=== PATIENT | female | born 1980 | race Caucasian/White ===

== ENCOUNTER 2023-04-29 08:15 | Inpatient (IN) | payer MEDICAID ==
[~2023-04-29] VITALS: Ht 162.6 cm; Wt 56.8 kg
--- NOTE | 2023-04-29 08:18 | NUR ---
given UA cup, patient came out while toilet was flushing, said she was "unable" to urinate
[2023-04-29 09:00] LABS: EOSINOPHILS # (AUTO) 0.2 X10'3 (0-0.9); HEMOGLOBIN 13.7 g/dl (12.0-16.0); LYMPHOCYTES # (AUTO) 0.5 X10'3 (1.1-4.8); WHITE BLOOD COUNT 10.9 X10'3 (4.5-11.0)
[2023-04-29 09:01] LABS: BASOPHILS % (AUTO) 0.2 % (0-1); EOSINOPHILS % (AUTO) 1.6 % (0-6); HEMATOCRIT 40.2 % (35.0-45.0); LYMPHOCYTES % (AUTO) 4.6 % (21-51); MEAN CORPUSCULAR HEMOGLOBIN 33.8 PG (27.0-31.0); MEAN CORPUSCULAR HGB CONC 34.1 g/dL (33.0-36.5); MEAN PLATELET VOLUME 8.5 FL (7.4-10.4); MONOCYTES # (AUTO) 0.8 X10'3 (0-0.9); MONOCYTES % (AUTO) 7.5 % (2-12); NEUTROPHILS # (AUTO) 9.4 X10'3 (1.8-7.7); NEUTROPHILS % (AUTO) 86.1 % (42-75); PLATELET COUNT 355 X10'3 (140-440); RED BLOOD COUNT 4.06 X10'6 (4.20-5.60); RED CELL DISTRIBUTION WIDTH 14.4 % (11.5-14.5)
[2023-04-29 09:51] LABS: ALANINE AMINOTRANSFERASE 27 U/L (12-78); ALBUMIN 3.6 G/DL (3.4-5.0); ALKALINE PHOSPHATASE 78 IU/L (46-116); ANION GAP 17 (8-16); ASPARTATE AMINO TRANSFERASE 36 U/L (10-37); BILIRUBIN,TOTAL 0.2 MG/DL (0.1-1.0); BLOOD UREA NITROGEN 5 MG/DL (7-18); BUN/CREATININE RATIO 8.9 (10.0-20.0); CALCIUM 8.8 MG/DL (8.5-10.1); CHLORIDE 104 MMOL/L (99-107); CREATININE 0.56 MG/DL (0.40-0.90); GLUCOSE 95 MG/DL (70-104); SODIUM 143 MMOL/L (135-145); TOTAL CARBON DIOXIDE 22.5 MMOL/L (24-32); TOTAL PROTEIN 7.3 G/DL (6.4-8.2); eGFR > 90 ML/MIN
[2023-04-29] MEDS ORDERED: ONDA4TAB12 PO (14:33)
[2023-04-29] MEDS ORDERED: POTASSIUM BICARB 20meq eff tab 20 MEQ TABLET.EFF PO STA (14:34)
[2023-04-29] MEDS ORDERED: ondansetron 4mg rapidly disintigrating tab PO ONE (14:35)
[2023-04-29] MEDS ORDERED: normal saline 1000ml 1,000 ML IV ONE (14:35)
[2023-04-29] MEDS ORDERED: famotidine 20mg tablet PO ONE (14:35)
[2023-04-29 14:57] LABS: MAGNESIUM 0.9 MG/DL (1.5-2.4)
--- NOTE | 2023-04-29 15:01 | NUR ---
Patient unable to provide urine sample. IV fluids started.
[2023-04-29] MEDS ORDERED: potassium Cl 40MEQ/1/2NS 520ml 520 ML IV ONE (15:15)
--- NOTE | 2023-04-29 15:20 | NUR ---
Charge nurse notified of pending admission and IV medications ordered.
[2023-04-29] MEDS ORDERED: morphine 4 MG/ML inj SYRINge IV ONE (15:25)
[2023-04-29 15:40] LABS: ETHANOL < 10 MG/DL (<10)
[2023-04-29 16:05] LABS: URINE AMPHETAMINE SCREEN NEGATIVE (Neg); URINE BARBITUATE SCREEN NEGATIVE (Neg); URINE BENZODIAZEPINES SCREEN NEGATIVE (Neg); URINE CANNABINOID SCREEN POSITIVE (Neg); URINE COCAINE SCREEN NEGATIVE (Neg); URINE METHADONE SCREEN NEGATIVE (Neg); URINE OPIATE SCREEN NEGATIVE (Neg); URINE PHENCYCLIDINE SCREEN NEGATIVE (Neg)
--- NOTE | 2023-04-29 16:05 | NUR ---
Dr. So, Hospitalist at bedside.
[2023-04-29] MEDS ORDERED: potassium Cl 40MEQ/1/2NS 520ml 520 ML IV PRN (16:30)
[2023-04-29] MEDS ORDERED: potassium Cl 20 mEq SR tablet PO PRN ×2 (16:30)
[2023-04-29] MEDS ORDERED: magnesium 2GM in 50ml NS 50 ML IV PRN (16:30)
[2023-04-29] MEDS ORDERED: magnesium 4gm in 100ml NS 100 ML IV PRN (16:30)
[2023-04-29] MEDS ORDERED: morphine 2 MG/ML inj. syringe IV PRN (16:30)
[2023-04-29] MEDS ORDERED: HYDROcodone/acetaminophen 5mg/325mg tablet PO PRN (16:30)
[2023-04-29] MEDS ORDERED: LORazepam 2 mg/ml vial IV PRN (16:30)
[2023-04-29] MEDS ORDERED: acetaminophen 325mg tablet PO PRN ×2 (16:30)
[2023-04-29] MEDS ORDERED: magnesium Cl slow-release 64mg tablet PO PRN (16:30)
[2023-04-29 16:52] LABS: LIPASE < 50 U/L (73-393)
--- NOTE | 2023-04-29 16:52 | NUR ---
Patient moved from ER fast track C to ER rm 11. Report given to LIBERTY Eason.
[2023-04-29 16:56] LABS: HCG SERUM QL NEGATIVE
[2023-04-29] MEDS: magnesium 2GM in 50ml NS 50 ML IV SCH ×2 (17:03→18:41)
[2023-04-29] MEDS: potassium Cl 20mEq in NS 1,000 ML IV SCH (17:03)
[2023-04-29] MEDS ORDERED: BUSP10TA3 PO (17:19)
[2023-04-29] MEDS ORDERED: HYDR-3686 PO (17:19)
[2023-04-29] MEDS ORDERED: GABA300C PO (17:19)
[2023-04-29] MEDS ORDERED: TRAZ-251 PO (17:19)
[2023-04-29] MEDS ORDERED: VENL75TA90 PO (17:19)
[2023-04-29] MEDS ORDERED: ESCI-8 PO (17:19)
[2023-04-29] MEDS: HYDROcodone/acetaminophen 10/325mg tab PO PRN ×2 (18:41→23:25)
[2023-04-29] MEDS: ondansetron/PF 4mg/2ml inj IV PRN ×2 (18:41→23:36)
[2023-04-29] MEDS: pantoprazole 40mg Tablet.DR PO SCH (20:59)
[2023-04-29] MEDS ORDERED: temazepam 15mg capsule PO PRN (21:00)
[2023-04-30] MEDS: LORazepam 1 MG tablet PO PRN ×5 (00:54→21:46)
[2023-04-30 01:43] LABS: CLARITY,URINE CLOUDY (Clear); COLOR,URINE YELLOW (Yellow); GLUCOSE, URINE NEGATIVE (Neg); KETONES,URINE NEGATIVE (Neg); LEUKOCYTE ESTERASE ,URINE NEGATIVE (Neg); NITRITES, URINE POSITIVE (Neg); OCCULT BLOOD,URINE MODERATE (Neg); PH,URINE 5.5 (4.8-8.0); PROTEIN,URINE TRACE mg/dl (Neg); UROBILINOGEN,URINE 0.2 E.U/dL (0.2-1.0)
[2023-04-30 01:44] LABS: UA COLLECTION TYPE VOIDED
[2023-04-30 01:52] LABS: BACTERIA,URINE 4+ /HPF (Neg)
[2023-04-30 01:53] LABS: RBC,URINE 0-2 /HPF (0-2)
[2023-04-30 01:55] LABS: MUCUS STRANDS FEW /LPF (Neg)
[2023-04-30 01:56] LABS: SQUAMOUS EPITHELIAL CELL,UR MANY /LPF (FEW)
[2023-04-30 03:49] LABS: HEMOGLOBIN 11.2 g/dl (12.0-16.0); MONOCYTES % (AUTO) 15.4 % (2-12); WHITE BLOOD COUNT 6.7 X10'3 (4.5-11.0)
[2023-04-30 03:51] LABS: BASOPHILS # (AUTO) 0.1 X10'3 (0-0.2); BASOPHILS % (AUTO) 0.8 % (0-1); EOSINOPHILS % (AUTO) 0.7 % (0-6); HEMATOCRIT 32.8 % (35.0-45.0); LYMPHOCYTES # (AUTO) 0.9 X10'3 (1.1-4.8); LYMPHOCYTES % (AUTO) 12.9 % (21-51); MEAN CORPUSCULAR HEMOGLOBIN 33.6 PG (27.0-31.0); MEAN CORPUSCULAR HGB CONC 34.2 g/dL (33.0-36.5); MEAN CORPUSCULAR VOLUME 98.2 FL (78-98); MEAN PLATELET VOLUME 9.1 FL (7.4-10.4); NEUTROPHILS # (AUTO) 4.7 X10'3 (1.8-7.7); NEUTROPHILS % (AUTO) 70.2 % (42-75); PLATELET COUNT 272 X10'3 (140-440); RED BLOOD COUNT 3.34 X10'6 (4.20-5.60); RED CELL DISTRIBUTION WIDTH 14.2 % (11.5-14.5)
[2023-04-30 03:56] LABS: ALANINE AMINOTRANSFERASE 29 U/L (12-78); ALBUMIN 2.6 G/DL (3.4-5.0); ALBUMIN/GLOBULIN RATIO 0.9 (1.1-1.5); ALKALINE PHOSPHATASE 66 IU/L (46-116); ANION GAP 5 (8-16); ASPARTATE AMINO TRANSFERASE 41 U/L (10-37); BILIRUBIN,TOTAL 0.2 MG/DL (0.1-1.0); BLOOD UREA NITROGEN 6 MG/DL (7-18); BUN/CREATININE RATIO 9.4 (10.0-20.0); CALCIUM 7.5 MG/DL (8.5-10.1); CHLORIDE 104 MMOL/L (99-107); CREATININE 0.64 MG/DL (0.40-0.90); GLUCOSE 81 MG/DL (70-104); MAGNESIUM 2.2 MG/DL (1.5-2.4); PHOSPHORUS 2.2 MG/DL (2.3-4.5); POTASSIUM 3.5 MMOL/L (3.5-5.1); SODIUM 135 MMOL/L (135-145); TOTAL CARBON DIOXIDE 25.9 MMOL/L (24-32); TOTAL PROTEIN 5.5 G/DL (6.4-8.2); eGFR > 90 ML/MIN
[2023-04-30] MEDS: potassium Cl 20mEq in NS 1,000 ML IV SCH ×2 (04:14→13:35)
[2023-04-30 05:48] LABS: OCCULT BLOOD STOOL POSITIVE (Neg)
[2023-04-30] MEDS: nicotine 14mg patch - 24hr TD SCH (08:00)
[2023-04-30] MEDS: ondansetron/PF 4mg/2ml inj IV PRN (08:27)
[2023-04-30] MEDS: HYDROcodone/acetaminophen 10/325mg tab PO PRN ×2 (08:27→13:35)
[2023-04-30] MEDS: multivitamins, therapeutics tablet PO SCH (08:28)
[2023-04-30] MEDS: pantoprazole 40mg Tablet.DR PO SCH (08:28)
[2023-04-30] MEDS ORDERED: iohexol 300mg/ml 100ml inj. ONE (09:48)
[2023-04-30 10:22] LABS: % IRON SATURATION 25 % (11-46); IRON 60 UG/DL (49-151); TOTAL IRON BINDING CAPACITY 243 UG/DL (259-388)
[2023-04-30 15:05] LABS: BASOPHILS # (AUTO) 0.1 X10'3 (0-0.2); BASOPHILS % (AUTO) 1.1 % (0-1); EOSINOPHILS % (AUTO) 0.9 % (0-6); HEMATOCRIT 35.3 % (35.0-45.0); HEMOGLOBIN 12.1 g/dl (12.0-16.0); LYMPHOCYTES # (AUTO) 1.2 X10'3 (1.1-4.8); LYMPHOCYTES % (AUTO) 23.3 % (21-51); MEAN CORPUSCULAR HEMOGLOBIN 33.9 PG (27.0-31.0); MEAN CORPUSCULAR HGB CONC 34.3 g/dL (33.0-36.5); MEAN CORPUSCULAR VOLUME 98.8 FL (78-98); MEAN PLATELET VOLUME 8.7 FL (7.4-10.4); MONOCYTES # (AUTO) 0.8 X10'3 (0-0.9); MONOCYTES % (AUTO) 14.7 % (2-12); NEUTROPHILS # (AUTO) 3.2 X10'3 (1.8-7.7); PLATELET COUNT 237 X10'3 (140-440); RED BLOOD COUNT 3.57 X10'6 (4.20-5.60); WHITE BLOOD COUNT 5.3 X10'3 (4.5-11.0)
--- NOTE | 2023-04-30 15:14 | NUR ---
RELIEVING RN FOR BREAK, PT IS RESTING QUIETLY ON HOSPITAL BED, AT BEDSIDE, WAITING FOR BED ASSIGNMENT
--- NOTE | 2023-04-30 16:31 | NUR ---
RN ATTEMPTED TO CALL REPORT AND WAS PLACED ON HOLD. RN WILL ATTEMPT TO CALL BACK.
--- NOTE | 2023-04-30 16:45 | NUR ---
Patient in room ORTHO 4023. I have received report from Summer and had the opportunity to ask questions and assume patient care.
[2023-04-30] MEDS ORDERED: CefTRIAXone/D5W-Rocephin 1gm 50 ML IV ONE (17:45)
[2023-04-30] MEDS: morphine 2 MG/ML inj. syringe IV PRN ×2 (17:46→21:46)
--- NOTE | 2023-04-30 18:45 | NUR ---
Patient in room ORTHO 4006. I have received report from NELL Childers and had the opportunity to ask questions and assume patient care.
--- NOTE | 2023-04-30 18:50 | NUR ---
Problems reprioritized. Patient report given, questions answered & plan of care reviewed with Bridget Castaneda RN.
[2023-04-30 22:00] VITALS: BP 163/95; PULSE 88; RESP 22; TEMP 101.2; O2SAT 92
[2023-04-30 22:53] VITALS: BP 169/78; PULSE 68; RESP 18; TEMP 101.6; O2SAT 91
[2023-04-30] MEDS ORDERED: vancomycin/NS 1 GM ADD-VANTAGE 250 ML IV ONE (23:00)
[2023-04-30] MEDS ORDERED: ringers solution, lacted 1,000 ML IV ONE (23:00)
[2023-05-01] MEDS: acetaminophen 1,000mg/100ml IV 100 ML IV SCH ×3 (00:07→09:19)
[2023-05-01] MEDS ORDERED: dexamethasone 4mg/ml inj IM SCH (00:50)
[2023-05-01] MEDS: dexamethasone 4mg/ml inj IV SCH ×2 (01:27→08:26)
[2023-05-01] MEDS: potassium Cl 20mEq in NS 1,000 ML IV SCH (01:28)
[2023-05-01 02:00] VITALS: BP 133/83; PULSE 85; RESP 19; TEMP 98.9; O2SAT 96
[2023-05-01] MEDS: morphine 2 MG/ML inj. syringe IV PRN ×2 (02:12→08:28)
[2023-05-01 02:25] VITALS: TEMP 100.4
[2023-05-01] MEDS: pantoprazole 40MG/NS 100ML BAG 100 ML IV SCH ×2 (03:21→08:47)
[2023-05-01 06:00] VITALS: BP 132/77; PULSE 63; RESP 16; TEMP 98.4; O2SAT 98
--- NOTE | 2023-05-01 06:39 | NUR ---
Patient in room ORTHO 4006. I have received report from Ryann CAMEJO and had the opportunity to ask questions and assume patient care.
[2023-05-01 08:00] VITALS: RESP 18
[2023-05-01] MEDS: nicotine 14mg patch - 24hr TD SCH (08:00)
[2023-05-01] MEDS: multivitamins, therapeutics tablet PO SCH (08:25)
[2023-05-01] MEDS: LORazepam 1 MG tablet PO PRN (08:25)
[2023-05-01 09:02] LABS: BASOPHILS % (AUTO) 0.2 % (0-1); EOSINOPHILS % (AUTO) 0.1 % (0-6); HEMATOCRIT 40.6 % (35.0-45.0); LYMPHOCYTES # (AUTO) 0.7 X10'3 (1.1-4.8); LYMPHOCYTES % (AUTO) 8.4 % (21-51); MEAN CORPUSCULAR HEMOGLOBIN 34.1 PG (27.0-31.0); MEAN CORPUSCULAR HGB CONC 34.4 g/dL (33.0-36.5); MEAN CORPUSCULAR VOLUME 99.2 FL (78-98); MEAN PLATELET VOLUME 9.2 FL (7.4-10.4); MONOCYTES # (AUTO) 0.5 X10'3 (0-0.9); MONOCYTES % (AUTO) 5.9 % (2-12); NEUTROPHILS # (AUTO) 7.2 X10'3 (1.8-7.7); NEUTROPHILS % (AUTO) 85.4 % (42-75); PLATELET COUNT 208 X10'3 (140-440); RED BLOOD COUNT 4.09 X10'6 (4.20-5.60); RED CELL DISTRIBUTION WIDTH 14.2 % (11.5-14.5); WHITE BLOOD COUNT 8.5 X10'3 (4.5-11.0)
[2023-05-01 09:21] LABS: APTT 33 SECONDS (22-32); D-DIMER 1.48 MG/L FEU (0-0.50)
[2023-05-01 09:25] LABS: ALANINE AMINOTRANSFERASE 23 U/L (12-78); ALBUMIN 2.8 G/DL (3.4-5.0); ALBUMIN/GLOBULIN RATIO 0.8 (1.1-1.5); ALKALINE PHOSPHATASE 72 IU/L (46-116); ANION GAP 8 (8-16); ASPARTATE AMINO TRANSFERASE 33 U/L (10-37); BILIRUBIN,TOTAL 0.2 MG/DL (0.1-1.0); BLOOD UREA NITROGEN 4 MG/DL (7-18); BUN/CREATININE RATIO 9.1 (10.0-20.0); CALCIUM 8.3 MG/DL (8.5-10.1); CHLORIDE 102 MMOL/L (99-107); CREATINE KINASE 85 U/L (26-192); CREATININE 0.44 MG/DL (0.40-0.90); GLUCOSE 112 MG/DL (70-104); MAGNESIUM 1.5 MG/DL (1.5-2.4); PHOSPHORUS 3.2 MG/DL (2.3-4.5); POTASSIUM 3.7 MMOL/L (3.5-5.1); SODIUM 133 MMOL/L (135-145); TOTAL CARBON DIOXIDE 23.2 MMOL/L (24-32); TOTAL PROTEIN 6.1 G/DL (6.4-8.2); eGFR > 90 ML/MIN
[2023-05-01] MEDS: HYDROcodone/acetaminophen 10/325mg tab PO PRN (09:55)
[2023-05-01 10:00] VITALS: BP 153/88; PULSE 63; RESP 16; TEMP 98.8; O2SAT 97
--- NOTE | 2023-05-01 10:15 | NUR ---
PAGER ID: [phone] MESSAGE: MAGDALENO MARMOLEJO [id number] RE: [id number] EGD CANCELED BY GI, SHOULD BE DONE POST COVID OUT PATIENT. ARCHANA PANDEY WOULD YOU LIKE TO ADD A DIET FOR THIS PATIENT. Addendum: 05/01/23 at 1016 by Jorge Young RN RECEIVED ORDERS AT THIS TIME FROM
[2023-05-01 11:25] VITALS: RESP 16
--- NOTE | 2023-05-01 13:25 | NUR ---
PAGER ID: [phone] MESSAGE: Alvarado Augustin [id number] patient did not want to wait for PT eval and treat and signed AMA form and are on the way out after she is dressed
--- NOTE | 2023-05-01 13:33 | NUR ---
Patient left AMA all IV out at this time, Tele box taken off patient. Patient discharge came through at the time of AMA and patient did not want to wait for PT to sign off or discharge. Patient was insistent that she needed to go down and smoke straight away. Patient stated she did not want to wait for discharge. Patient missed all discharge instruction and her follow with her primary, she never waited for instruction on self isolation or any GI follow up that was recommended by MD. Patient also never got her discharge medication or instruction. Patient made it clear she did not want to wait to go out and smoke. Patient signed AMA after removing both of her IV's and removing tele box as well. MD was notified that patient did not want to wait for discharge because she wanted to go out and smoke. Patient also told MD that she wanted to go out and smoke at this time. Patient was not able to be dissuaded at this time.
[2023-05-02] MEDS ORDERED: acetaminophen 325mg tablet PO PRN ×2 (14:15)
[2023-05-04] MEDS ORDERED: folic acid 1mg tablet PO SCH (08:00)
[2023-05-04] MEDS ORDERED: thiamine 100mg tablet PO SCH (08:00)
== END 2023-05-01 13:30 | disposition left against medical advice (07) | DRG 249 ==
LOC: ER 08:16 → ED HOLD 16:37 → ORTHO 4S 04-30 16:48
PROVIDERS: ADMIT Internal Medicine; ATTEND Internal Medicine
DX: K52.9 Noninfective gastroenteritis and colitis, unspecified (principal); U07.1 COVID-19; Z53.29 Procedure and treatment not carried out because of patient's decision for other reasons; E83.42 Hypomagnesemia; F17.210 Nicotine dependence, cigarettes, uncomplicated; F12.90 Cannabis use, unspecified, uncomplicated; N93.9 Abnormal uterine and vaginal bleeding, unspecified; K21.9 Gastro-esophageal reflux disease without esophagitis; N39.0 Urinary tract infection, site not specified; F10.10 Alcohol abuse, uncomplicated; F41.9 Anxiety disorder, unspecified; E87.6 Hypokalemia; R07.89 Other chest pain; K29.20 Alcoholic gastritis without bleeding; F32.A Depression, unspecified; Z59.00 Homelessness unspecified; Z71.6 Tobacco abuse counseling; Z71.51 Drug abuse counseling and surveillance of drug abuser; Z79.899 Other long term (current) drug therapy
CPT/HCPCS: 36415; 71045; 74177; 80053; 80305; 80320; 81001; 82272; 82550; 83540; 83550; 83605; 83690; 83735; 83880; 84100; 84443; 84484; 84703; 85025; 85379; 85384; 85610; 85730; 86140; 87040; 87081; 87811; 93005; 99285; A4615; A6258; C9113; G0378; J0131; J0696; J1100; J2060; J2270; J2405; J3370; J3475; J3480; J3490; J7030; J7120; Q9967

== ENCOUNTER 2023-05-02 19:47 | Emergency (ER) | payer MEDICAID ==
[~2023-05-02 19:47] MED LIST: BUSP10TA3 PO; ESCI-8 PO; GABA300C PO; HYDR-3686 PO; TRAZ-251 PO; VENL75TA90 PO
== END 2023-05-02 21:37 | disposition left against medical advice (07) ==
LOC: ER 19:47
DX: Z00.8 Encounter for other general examination (principal); Z53.21 Procedure and treatment not carried out due to patient leaving prior to being seen by health care provider

== ENCOUNTER 2024-01-12 18:15 | Inpatient (IN) | payer MEDICAID ==
[~2024-01-12] VITALS: Ht 162.6 cm; Wt 59.1 kg
[2024-01-12] MEDS ORDERED: loperamide 2mg capsule PO PRN (20:45)
[2024-01-12] MEDS ORDERED: magnesium hydroxide 30ml (MOM) UD suspension PO PRN (20:45)
[2024-01-12] MEDS: busPIRone 5mg tablet PO SCH (21:00)
[2024-01-12 21:12] VITALS: RESP 16; O2SAT 100
[2024-01-12] MEDS: pneumococcal 23-VAL P-sac vacc 25 mcg/0.5ml vial IMVAC ONE (22:12)
[2024-01-12] MEDS: gabapentin 300mg capsule PO SCH (22:18)
[2024-01-12] MEDS: hydrOXYzine 25 MG tablet PO PRN (22:19)
[2024-01-12] MEDS: ondansetron 4mg rapidly disintigrating tab PO PRN (22:19)
[2024-01-12] MEDS: LORazepam 1 MG tablet PO PRN (22:19)
[2024-01-13 07:11] VITALS: RESP 16; O2SAT 100
[2024-01-13 08:00] VITALS: BP 150/94; PULSE 74; RESP 14; TEMP 97.8; O2SAT 98
[2024-01-13] MEDS: ESCITALOPRAM 10 mg tablet 10 MG TABLET PO SCH (08:18)
[2024-01-13] MEDS: venlafaxine 25mg tablet PO SCH (08:19)
[2024-01-13] MEDS: nicotine 21mg patch - 24 hr TD SCH (08:26)
[2024-01-13 09:50] LABS: CHOL/HDL RATIO 2.2 (0.00-4.99); CHOLESTEROL 208 MG/DL (0-200); HDL CHOLESTEROL 93 MG/DL (35-60); HEMOGLOBIN A1C 4.6 % (4.5-6.2); LDL CHOLESTEROL 103 MG/DL (50-100); TRIGLYCERIDES 173 MG/DL (20-135)
[2024-01-13 11:56] LABS: ALANINE AMINOTRANSFERASE 15 U/L (12-78); ALBUMIN 3.3 G/DL (3.4-5.0); ALBUMIN/GLOBULIN RATIO 0.8 (1.1-1.5); ALKALINE PHOSPHATASE 79 IU/L (46-116); ANION GAP 17 (8-16); ASPARTATE AMINO TRANSFERASE 25 U/L (10-37); BILIRUBIN,TOTAL 1.4 MG/DL (0.1-1.0); BLOOD UREA NITROGEN 16 MG/DL (7-18); BUN/CREATININE RATIO 31.4 (10.0-20.0); CALCIUM 9.7 MG/DL (8.5-10.1); CHLORIDE 96 MMOL/L (99-107); CREATININE 0.51 MG/DL (0.40-0.90); GLUCOSE 156 MG/DL (70-104); LIPASE 32 U/L (16-77); MAGNESIUM 1.5 MG/DL (1.5-2.4); PHOSPHORUS 3.5 MG/DL (2.3-4.5); POTASSIUM 3.3 MMOL/L (3.5-5.1); SODIUM 137 MMOL/L (135-145); TOTAL CARBON DIOXIDE 24.5 MMOL/L (24-32); TOTAL PROTEIN 7.2 G/DL (6.4-8.2); eCRCL 120 ML/MIN; eGFR > 90 ML/MIN
[2024-01-13 12:00] LABS: BASOPHILS # (AUTO) 0.1 X10'3 (0-0.2); BASOPHILS % (AUTO) 1.4 % (0-1); EOSINOPHILS # (AUTO) 0.3 X10'3 (0-0.9); EOSINOPHILS % (AUTO) 3.1 % (0-6); HEMATOCRIT 38.9 % (35.0-45.0); HEMOGLOBIN 13.4 g/dl (12.0-16.0); LYMPHOCYTES # (AUTO) 1.3 X10'3 (1.1-4.8); LYMPHOCYTES % (AUTO) 15.6 % (21-51); MEAN CORPUSCULAR HEMOGLOBIN 33.3 PG (27.0-31.0); MEAN CORPUSCULAR HGB CONC 34.4 g/dL (33.0-36.5); MEAN CORPUSCULAR VOLUME 96.9 FL (78-98); MEAN PLATELET VOLUME 9.4 FL (7.4-10.4); MONOCYTES # (AUTO) 0.9 X10'3 (0-0.9); MONOCYTES % (AUTO) 10.7 % (2-12); NEUTROPHILS # (AUTO) 5.6 X10'3 (1.8-7.7); NEUTROPHILS % (AUTO) 69.2 % (42-75); PLATELET COUNT 258 X10'3 (140-440); RED BLOOD COUNT 4.01 X10'6 (4.20-5.60); RED CELL DISTRIBUTION WIDTH 15.2 % (11.5-14.5); WHITE BLOOD COUNT 8.1 X10'3 (4.5-11.0)
[2024-01-13] MEDS ORDERED: pneumococcal 23-VAL P-sac vacc 25 mcg/0.5ml vial IMVAC ONE (12:00)
[2024-01-13] MEDS: pneumococcal 23-VAL P-sac vacc 25 mcg/0.5ml vial IMVAC ONE (13:37)
[2024-01-13 19:19] VITALS: BP 142/87; PULSE 91; RESP 14; TEMP 98; O2SAT 97
[2024-01-13] MEDS: traZODone 50mg tablet PO SCH (20:04)
[2024-01-14 07:00] VITALS: RESP 14; O2SAT 99
[2024-01-14 08:00] VITALS: BP 135/88; PULSE 73; RESP 14; TEMP 97.7; O2SAT 99
[2024-01-14] MEDS: pantoprazole 40mg Tablet.DR PO SCH (08:13)
[2024-01-14] MEDS: acetaminophen 325mg tablet PO PRN (10:03)
[2024-01-14 18:50] VITALS: RESP 16; O2SAT 99
[2024-01-14 19:44] VITALS: BP 148/92; PULSE 82; RESP 16; TEMP 89.9; O2SAT 99
[2024-01-15 07:00] VITALS: RESP 14; O2SAT 66
[2024-01-15 08:00] VITALS: BP 134/79; PULSE 66; RESP 14; TEMP 98.6; O2SAT 99
[2024-01-15] MEDS: venlafaxine XR 75mg capsule (Q24H) PO SCH (08:02)
[2024-01-15] MEDS ORDERED: potassium Cl 20 mEq SR tablet PO PRN ×2 (13:10)
[2024-01-15] MEDS ORDERED: magnesium Cl slow-release 64mg tablet PO PRN (13:10)
[2024-01-15] MEDS: NICOTINE POLACRILEX 2 MG LOZENGE BC PRN (16:28)
[2024-01-15 19:00] VITALS: BP 155/95; PULSE 79; RESP 18; TEMP 97.6; O2SAT 100
[2024-01-15] MEDS: busPIRone 15mg tablet PO SCH (20:34)
[2024-01-15] MEDS: traZODone 50mg tablet PO ONE (22:15)
[2024-01-16 07:00] VITALS: RESP 16; O2SAT 97
[2024-01-16 08:00] VITALS: BP 126/81; PULSE 76; RESP 16; TEMP 97; O2SAT 97
[2024-01-16] MEDS: hydrOXYzine 25 MG tablet PO PRN (19:05)
[2024-01-16] MEDS: HALLS - SOOTHE MENTHOL 1.8 MG cough drop LOZENGE MM PRN (19:36)
[2024-01-16 20:00] VITALS: BP 148/85; PULSE 77; RESP 18; TEMP 97.9; O2SAT 99
[2024-01-17 07:00] VITALS: BP 124/81; PULSE 76; RESP 16; TEMP 98; O2SAT 99
[2024-01-17] MEDS: naltrexone 50mg tablet PO SCH (07:07)
[2024-01-17] MEDS: folic acid 1mg tablet PO ONE (11:23)
[2024-01-17] MEDS ORDERED: HALLS - SOOTHE MENTHOL 1.8 MG cough drop LOZENGE MM PRN (17:00)
[2024-01-17] MEDS: thiamine 100mg tablet PO SCH (20:21)
[2024-01-17] MEDS: propranolol 10mg tablet PO SCH (20:21)
[2024-01-17 20:34] VITALS: BP 170/89; PULSE 69; RESP 18; TEMP 96.6; O2SAT 100
[2024-01-18 07:00] VITALS: BP 127/75; PULSE 73; RESP 16; TEMP 97.5; O2SAT 96
[2024-01-18] MEDS: multivitamins, therapeutics tablet PO SCH (07:19)
[2024-01-18] MEDS: LORazepam 0.5 MG tablet PO PRN (15:42)
[2024-01-18 20:00] VITALS: BP 132/87; PULSE 98; RESP 17; TEMP 97.5; O2SAT 99
[2024-01-19 07:00] VITALS: RESP 12; O2SAT 99
[2024-01-19 08:00] VITALS: BP 122/79; PULSE 61; RESP 12; TEMP 97.3; O2SAT 99
[2024-01-19 13:17] VITALS: BP 136/89; PULSE 67
[2024-01-19 19:00] VITALS: RESP 14; O2SAT 99
[2024-01-19 21:00] VITALS: BP 129/84; PULSE 70; RESP 14; TEMP 97.4; O2SAT 99
[2024-01-19] MEDS: propranolol 10mg tablet PO SCH (21:19)
[2024-01-20 07:00] VITALS: RESP 12; O2SAT 99
[2024-01-20 08:00] VITALS: BP 128/89; PULSE 97; RESP 16; TEMP 97.2; O2SAT 96
[2024-01-20] MEDS: LORazepam 0.5 MG tablet PO PRN (09:28)
[2024-01-20] MEDS ORDERED: MULT-25 PO (09:59)
[2024-01-20] MEDS ORDERED: BUS15T PO (09:59)
[2024-01-20] MEDS ORDERED: NICO-907 BC (09:59)
[2024-01-20] MEDS ORDERED: NICO-687 TD (09:59)
[2024-01-20] MEDS ORDERED: HYDR-3686 PO (09:59)
[2024-01-20] MEDS ORDERED: GABA300C PO (09:59)
[2024-01-20] MEDS ORDERED: NALT50TA PO (09:59)
[2024-01-20] MEDS ORDERED: PROP10TA10 PO (09:59)
[2024-01-20] MEDS ORDERED: VENL150C58 PO (09:59)
[2024-01-20] MEDS ORDERED: thiamine tablet PO (09:59)
[2024-01-20] MEDS ORDERED: TRAZ-251 PO (09:59)
[2024-01-20] MEDS ORDERED: PANT40TA54 PO (09:59)
[2024-01-20 19:00] VITALS: RESP 16; O2SAT 97
[2024-01-20 20:00] VITALS: BP 132/75; PULSE 68; RESP 16; TEMP 97.6; O2SAT 97
[2024-01-21 07:00] VITALS: RESP 12; O2SAT 99
[2024-01-21 08:00] VITALS: BP 109/73; PULSE 69; RESP 14; TEMP 97.7; O2SAT 100
[2024-01-21 19:00] VITALS: RESP 14; O2SAT 99
[2024-01-21 20:00] VITALS: BP 106/74; PULSE 61; RESP 14; TEMP 97.1; O2SAT 99
[2024-01-22 07:25] VITALS: RESP 16; O2SAT 96
[2024-01-22 08:00] VITALS: BP 112/60; PULSE 64; RESP 16; TEMP 96.3; O2SAT 100
[2024-01-22 19:00] VITALS: BP 127/80; PULSE 66; RESP 16; TEMP 97.1; O2SAT 100
[2024-01-22 20:00] VITALS: BP 127/80; PULSE 66; RESP 16; TEMP 97.1; O2SAT 100
[2024-01-23 07:14] VITALS: RESP 16; O2SAT 100
[2024-01-23 08:14] VITALS: BP 117/79; PULSE 57; RESP 16; TEMP 97.1; O2SAT 100
== END 2024-01-23 11:04 | DRG 751 ==
LOC: EEVIPCON → ADULT MH 20:36 → EEVIPCON 20:36 → ADULT MH 01-14 11:46
PROVIDERS: ADMIT Psychiatry & Neurology Psychiatry; ATTEND Psychiatry & Neurology Psychiatry
PROC: GZHZZZZ Group Psychotherapy (ICD-10-PCS; principal; 2024-01-19)
PROC: GZ51ZZZ Individual Psychotherapy, Behavioral (ICD-10-PCS; 2024-01-20)
DX: F33.2 Major depressive disorder, recurrent severe without psychotic features (principal); R45.851 Suicidal ideations; E87.6 Hypokalemia; F10.239 Alcohol dependence with withdrawal, unspecified; F43.12 Post-traumatic stress disorder, chronic; K21.9 Gastro-esophageal reflux disease without esophagitis; Z20.822 Contact with and (suspected) exposure to COVID-19; F41.1 Generalized anxiety disorder; G47.00 Insomnia, unspecified; F17.210 Nicotine dependence, cigarettes, uncomplicated; G89.4 Chronic pain syndrome; Z59.00 Homelessness unspecified; Z79.899 Other long term (current) drug therapy; R19.7 Diarrhea, unspecified; F40.10 Social phobia, unspecified
CPT/HCPCS: 36415; 71045; 80053; 80061; 83036; 83690; 83735; 84100; 85025; 87081; 87811; 90732; Q0177

== ENCOUNTER 2024-11-17 15:27 | Inpatient (IN) | payer MEDICAID ==
[~2024-11-17] VITALS: Ht 165.1 cm; Wt 56.7 kg
[~2024-11-17 15:27] MED LIST changes: +BUS15T PO; -BUSP10TA3 PO; -ESCI-8 PO; +MULT-25 PO; +NALT50TA5 PO; +NICO-687 TD; +NICO-907 BC; +PANT40TA54 PO; +PROP10TA10 PO; +VENL150C58 PO; -VENL75TA90 PO; +thiamine tablet PO
[2024-11-17 17:06] VITALS: BP 138/98; PULSE 98; RESP 17; TEMP 97.9; O2SAT 94
[2024-11-17] MEDS ORDERED: chlorproMAZINE 25mg tablet PO PRN (17:35)
[2024-11-17] MEDS ORDERED: loperamide 2mg capsule PO PRN (17:35)
[2024-11-17] MEDS ORDERED: acetaminophen 325mg tablet PO PRN (17:35)
[2024-11-17] MEDS ORDERED: diphenhydrAMINE 25mg capsule PO PRN (17:35)
[2024-11-17] MEDS ORDERED: ondansetron 4mg rapidly disintigrating tab PO PRN (17:40)
[2024-11-17] MEDS: hydrOXYzine 25 MG tablet PO PRN (19:13)
[2024-11-17] MEDS: nicotine 14mg patch - 24hr TD SCH (19:40)
[2024-11-17 20:35] VITALS: BP 106/67; PULSE 101; RESP 20; TEMP 98.3; O2SAT 98
[2024-11-17] MEDS: traZODone 50mg tablet PO PRN (20:55)
[2024-11-17] MEDS: LORazepam 1 MG tablet PO ONE (20:55)
[2024-11-17] MEDS: NICOTINE POLACRILEX 2 MG LOZENGE BC PRN (20:55)
[2024-11-17] MEDS: LIDOcaine 5% patch TP SCH (20:56)
[2024-11-18] MEDS ORDERED: GABA-530 PO (02:56)
[2024-11-18] MEDS ORDERED: VENL150C58 PO (02:56)
[2024-11-18] MEDS ORDERED: HYDR50TA65 PO (02:56)
[2024-11-18] MEDS ORDERED: TRAZ-251 PO (02:56)
[2024-11-18 07:30] VITALS: BP 144/85; PULSE 91; RESP 17; TEMP 98; O2SAT 97
[2024-11-18] MEDS ORDERED: GABA-1405 PO (07:46)
[2024-11-18] MEDS ORDERED: HYDR-3686 PO (07:57)
[2024-11-18 08:00] LABS: CHOL/HDL RATIO 2.7 (0.00-4.99); CHOLESTEROL 201 MG/DL (0-200); HDL CHOLESTEROL 75 MG/DL (35-60); LDL CHOLESTEROL 109 MG/DL (50-100); TRIGLYCERIDES 76 MG/DL (20-135)
[2024-11-18] MEDS: acetaminophen 325mg tablet PO PRN (08:57)
[2024-11-18] MEDS ORDERED: hydrOXYzine 25 MG tablet PO PRN (09:15)
[2024-11-18] MEDS: gabapentin 300mg capsule PO SCH (12:36)
[2024-11-18] MEDS: methyl salicylate/menthol cream 57gm TP SCH (12:37)
[2024-11-18] MEDS: LORazepam 1 MG tablet PO ONE (13:17)
[2024-11-18 19:00] VITALS: RESP 18; O2SAT 99
[2024-11-18] MEDS: LORazepam 0.5 MG tablet PO PRN (19:27)
[2024-11-18] MEDS: propranolol 10mg tablet PO SCH (19:27)
[2024-11-18] MEDS: thiamine 100mg tablet PO SCH (19:28)
[2024-11-18 20:00] VITALS: BP 148/88; PULSE 80; RESP 18; TEMP 97.8; O2SAT 99
[2024-11-18] MEDS: traZODone 50mg tablet PO PRN (20:37)
[2024-11-19] MEDS: naltrexone 50mg tablet PO SCH (07:14)
[2024-11-19] MEDS: multivitamins, therapeutics tablet PO SCH (07:15)
[2024-11-19] MEDS: venlafaxine XR 37.5mg cap (Q24H) PO SCH (07:15)
[2024-11-19] MEDS: folic acid 1mg tablet PO SCH (07:15)
[2024-11-19 08:00] VITALS: RESP 12; O2SAT 92
[2024-11-19 08:30] VITALS: BP 134/91; PULSE 70; RESP 12; TEMP 97.9; O2SAT 92
[2024-11-19] MEDS ORDERED: FLU VACC TS2024-25(6MOS UP)/PF 45 MCG/0.5 ML SYRINGE IMVAC ONE (10:00)
[2024-11-19 19:01] VITALS: RESP 20; O2SAT 98
[2024-11-19 20:00] VITALS: BP 159/95; PULSE 77; RESP 20; TEMP 97.3; O2SAT 98
[2024-11-20 08:00] VITALS: BP 112/80; PULSE 78; RESP 16; TEMP 97.4; O2SAT 99
[2024-11-20] MEDS: FLU VACC TS2024-25(6MOS UP)/PF 45 MCG/0.5 ML SYRINGE IMVAC ONE (13:44)
[2024-11-20 19:00] VITALS: BP 146/80; PULSE 80; RESP 18; TEMP 97.6; O2SAT 99
[2024-11-21 07:23] VITALS: BP 103/71; PULSE 84; RESP 18; TEMP 97.9; O2SAT 98
[2024-11-21 07:59] VITALS: RESP 18; O2SAT 99
[2024-11-21 12:44] VITALS: BP 124/82; PULSE 71
[2024-11-21 19:00] VITALS: BP 141/84; PULSE 78; RESP 18; TEMP 98.5; O2SAT 100
[2024-11-21] MEDS: Melatonin 3mg tablet PO SCH (20:40)
[2024-11-22 07:20] VITALS: BP 115/66; PULSE 69; RESP 16; TEMP 97.6; O2SAT 99
[2024-11-22 08:03] VITALS: RESP 16; O2SAT 99
[2024-11-22] MEDS: HALLS - SOOTHE MENTHOL 1.8 MG cough drop LOZENGE MM PRN (09:34)
[2024-11-22 12:51] VITALS: BP 149/85; PULSE 73
[2024-11-22] MEDS: mag hydrox/Alum hydrox/simeth 30ml oral suspension PO PRN (12:57)
[2024-11-22] MEDS ORDERED: LIDO700A47 TP (14:03)
[2024-11-22] MEDS ORDERED: GABA-1555 PO (14:03)
[2024-11-22] MEDS ORDERED: HYDR-3686 PO (14:03)
[2024-11-22] MEDS ORDERED: TRAZ-251 PO (14:03)
[2024-11-22] MEDS ORDERED: NALT50TA5 PO (14:03)
[2024-11-22] MEDS ORDERED: MELA3TAB39 PO (14:03)
[2024-11-22] MEDS ORDERED: MULT-25 PO (14:03)
[2024-11-22] MEDS ORDERED: VENL37.59 PO (14:03)
[2024-11-22] MEDS ORDERED: thiamine tablet PO (14:03)
[2024-11-22] MEDS ORDERED: PROP10TA10 PO (14:03)
[2024-11-22] MEDS ORDERED: FOLI1TAB27 PO (14:03)
[2024-11-22] MEDS: magnesium hydroxide 30ml (MOM) UD suspension PO PRN (15:34)
[2024-11-22] MEDS: sucralfate 1 gm tablet PO ONE (18:53)
[2024-11-22 19:00] VITALS: RESP 20; O2SAT 99
[2024-11-22 20:00] VITALS: BP 128/81; PULSE 74; RESP 20; TEMP 98; O2SAT 99
[2024-11-22] MEDS: traZODone 50mg tablet PO PRN (20:34)
[2024-11-23 07:00] VITALS: RESP 16; O2SAT 99
[2024-11-23] MEDS ORDERED: VENL37.59 PO (07:03)
[2024-11-23] MEDS ORDERED: HYDR-3686 PO (07:18)
[2024-11-23] MEDS: venlafaxine XR 75mg capsule (Q24H) PO SCH (07:47)
[2024-11-23] MEDS: polyethylene glycol 3350 17gm powd pack PO SCH (07:54)
[2024-11-23 08:00] VITALS: BP 122/74; PULSE 68; RESP 16; TEMP 98.2; O2SAT 99
[2024-11-23] MEDS: hydrOXYzine 25 MG tablet PO PRN (10:59)
[2024-11-23 12:48] VITALS: BP 120/69; PULSE 60
[2024-11-23] MEDS: LORazepam 0.5 MG tablet PO PRN (15:42)
[2024-11-23 19:00] VITALS: RESP 16; O2SAT 99
[2024-11-23 19:11] VITALS: BP 113/68; PULSE 75; RESP 15; TEMP 97.5; O2SAT 99
[2024-11-23] MEDS: pantoprazole 40mg Tablet.DR PO ONE (19:55)
[2024-11-23 20:59] LABS: BASOPHILS # (AUTO) 0.1 X10'3 (0-0.2); BASOPHILS % (AUTO) 0.9 % (0-1); EOSINOPHILS # (AUTO) 0.4 X10'3 (0-0.9); EOSINOPHILS % (AUTO) 3.3 % (0-6); HEMATOCRIT 40.1 % (35.0-45.0); HEMOGLOBIN 13.4 g/dl (12.0-16.0); LYMPHOCYTES # (AUTO) 2.4 X10'3 (1.1-4.8); LYMPHOCYTES % (AUTO) 21.3 % (21-51); MEAN CORPUSCULAR HEMOGLOBIN 33.3 PG (27.0-31.0); MEAN CORPUSCULAR HGB CONC 33.5 g/dL (33.0-36.5); MEAN CORPUSCULAR VOLUME 99.3 FL (78-98); MEAN PLATELET VOLUME 8.7 FL (7.4-10.4); MONOCYTES # (AUTO) 1.8 X10'3 (0-0.9); MONOCYTES % (AUTO) 15.8 % (2-12); NEUTROPHILS # (AUTO) 6.6 X10'3 (1.8-7.7); NEUTROPHILS % (AUTO) 58.7 % (42-75); PLATELET COUNT 314 X10'3 (140-440); RED BLOOD COUNT 4.04 X10'6 (4.20-5.60); RED CELL DISTRIBUTION WIDTH 13.5 % (11.5-14.5); WHITE BLOOD COUNT 11.3 X10'3 (4.5-11.0)
[2024-11-23 21:15] LABS: ALANINE AMINOTRANSFERASE 18 U/L (12-78); ALBUMIN 3.4 G/DL (3.4-5.0); ALKALINE PHOSPHATASE 99 IU/L (46-116); ANION GAP 5 (8-16); ASPARTATE AMINO TRANSFERASE 16 U/L (10-37); BILIRUBIN,TOTAL 0.1 MG/DL (0.1-1.0); BLOOD UREA NITROGEN 18 MG/DL (7-18); BUN/CREATININE RATIO 26.1 (10.0-20.0); CALCIUM 9.4 MG/DL (8.5-10.1); CHLORIDE 103 MMOL/L (99-107); CREATININE 0.69 MG/DL (0.40-0.90); GLUCOSE 79 MG/DL (70-104); POTASSIUM 4.1 MMOL/L (3.5-5.1); SODIUM 140 MMOL/L (135-145); TOTAL CARBON DIOXIDE 32.3 MMOL/L (24-32); TOTAL PROTEIN 6.9 G/DL (6.4-8.2); eCRCL 86 ML/MIN; eGFR > 90 ML/MIN
[2024-11-24 07:00] VITALS: RESP 14; O2SAT 99
[2024-11-24] MEDS: pantoprazole 40mg Tablet.DR PO SCH (07:29)
[2024-11-24 08:00] VITALS: BP 107/75; PULSE 77; RESP 14; TEMP 98; O2SAT 99
[2024-11-24 19:00] VITALS: RESP 17; O2SAT 99
[2024-11-24] MEDS: simethicone 80mg chew tab PO SCH (19:45)
[2024-11-24 20:00] VITALS: BP 129/79; PULSE 78; RESP 17; TEMP 97.9; O2SAT 99
[2024-11-25 07:00] VITALS: RESP 16; O2SAT 99
[2024-11-25 08:00] VITALS: BP 97/67; PULSE 71; RESP 16; TEMP 97.7; O2SAT 99
[2024-11-25 19:00] VITALS: RESP 16; O2SAT 99
[2024-11-25 20:00] VITALS: BP 174/76; PULSE 71; RESP 16; TEMP 98.3; O2SAT 99
[2024-11-25] MEDS: polyvinyl alcohol eye drops 15ML BOTTLE LEFTEYE PRN (20:57)
[2024-11-26 07:00] VITALS: RESP 18; O2SAT 99
[2024-11-26 08:00] VITALS: BP 121/81; PULSE 71; RESP 18; TEMP 98; O2SAT 99
[2024-11-26 19:00] VITALS: RESP 18; O2SAT 98
[2024-11-26] MEDS ORDERED: polyvinyl alcohol eye drops 15ML BOTTLE EACHEYE PRN (19:10)
[2024-11-26 19:52] VITALS: BP 115/76; PULSE 73; RESP 18; TEMP 97.8; O2SAT 98
[2024-11-26] MEDS: salt irrigation nasal spray 45 ML SPRAY NS PRN (20:30)
[2024-11-26] MEDS: ciprofloxacin 0.3% 2.5ml ophthalmic solution LEFTEYE SCH (20:32)
[2024-11-27 07:54] VITALS: BP 110/74; PULSE 84; RESP 14; TEMP 97.7; O2SAT 98
[2024-11-27 08:08] VITALS: RESP 14; O2SAT 99
== END 2024-11-27 10:22 | DRG 754 ==
LOC: UNDOADMIN 16:08 → ADULT MH 16:08
PROVIDERS: ADMIT Psychiatry & Neurology Psychiatry; ATTEND Psychiatry & Neurology Psychiatry
DX: F32.9 Major depressive disorder, single episode, unspecified (principal); R45.851 Suicidal ideations; F10.10 Alcohol abuse, uncomplicated; F15.10 Other stimulant abuse, uncomplicated; Z20.822 Contact with and (suspected) exposure to COVID-19; F17.210 Nicotine dependence, cigarettes, uncomplicated; F12.90 Cannabis use, unspecified, uncomplicated; K21.9 Gastro-esophageal reflux disease without esophagitis; F41.9 Anxiety disorder, unspecified; Z79.899 Other long term (current) drug therapy; Z81.8 Family history of other mental and behavioral disorders
CPT/HCPCS: 36415; 71045; 74018; 76700; 80053; 80061; 83605; 84145; 85025; 87081; 87811; 90686; Q0177

== ENCOUNTER 2025-09-06 09:39 | Emergency (ER) | payer MEDICAID ==
[~2025-09-06] VITALS: Ht 165.1 cm; Wt 58.2 kg
[~2025-09-06 09:39] MED LIST changes: -BUS15T PO; +FOLI1TAB27 PO; +GABA-1555 PO; -GABA300C PO; +LIDO700A47 TP; +MELA3TAB39 PO; -NICO-687 TD; -NICO-907 BC; -PANT40TA54 PO; -VENL150C58 PO; +VENL37.59 PO
[2025-09-06 10:07] VITALS: TEMP 97.7
--- NOTE | 2025-09-06 10:11 | Physician Documentation ---
History of Present Illness Chief Complaint: Flank Pain Stated Complaint: ABD PAIN Primary Medical Doctor: [facility] HPI Patient is a very pleasant 45-year-old female that presents to the emergency department for evaluation of right flank pain x3 weeks. Patient reports that she has had 1 episode of vomiting 2 days ago other than that no fever no chills no additional vomiting no nausea no diarrhea. Any dysuria foul-smelling urine or any other symptoms at this time. Medication Reconciliation Allergies: Coded Allergies: No Known Allergies (Unverified , 09/06/25) Scheduled Folic Acid* (Folic Acid*), 1 MG PO DAILY Gabapentin (Gabapentin), 1 TAB PO Q8H Lidocaine (Lidocaine), 1 PATCH TP DAILY Melatonin (Melatonin), 6 MG PO HS Multivitamin with Folic Acid (Thera Tablet), 1 EACH PO DAILY Naltrexone Hcl (Naltrexone Hcl), 50 MG PO DAILY Propranolol Hcl* (Inderal*), 10 MG PO TID Venlafaxine Hcl XR* (Effexor XR*), 75 MG PO DAILY [thiamine tablet], 100 MG PO BID Scheduled PRN Hydroxyzine Hcl* (Atarax*), 1 TAB PO BID PRN for for anxiety/agitation Hydroxyzine Hcl* (Atarax*), 50 MG PO Q6H PRN for itching Trazodone HCl (Trazodone HCl), 100 MG PO HS PRN for sleep Trazodone HCl (Trazodone HCl), 150 MG PO HS PRN for sleep Past Medical History Past Medical History: Anxiety, Depression Past Surgical History: noncontributory Patient History: Patient reports no known family medical history. Alcohol Use: Abuse Drug Use: marijuana Lives with: Spouse Lives In: Homeless Occupation: other Review of Systems ROS As stated above in the HPI, otherwise all systems are reviewed and negative. Physical Exam Vital Signs: Temperature: 97.7, Source: Temporal, Heart Rate: 102, Respiratory Rate: 18, BP: 152/93, Pulse Oximetry: 99, Weight: 58.200 Oxygen Flow Rate: 0 Physical Exam VITALS: Reviewed and as above. GENERAL: Alert, no apparent distress. HEENT: Normocephalic, atraumatic, PERRL, EOMI, dry mucosa, no erythema RESPIRATORY: Lungs clear, normal breath sounds, no respiratory distress. CHEST: No accessory muscle use, no retractions CV: Regular rate, rhythm, no edema, no murmur, No: JVD GI: Soft, non-tender, bowels sounds present, no rebound, guarding, or rigidity BACK: Positive left CVA tenderness, or swelling MUSCULOSKELETAL No deformities, no edema SKIN: Warm and dry, no rash NEURO: Oriented x4, No motor or sensory deficit PSYCH: Normal mood and affect, no agitation Progress Results/Orders Results/Orders Vital Signs 09/06/25 10:07 Temp 97.7 Pulse 102 Resp 18 B/P (MAP) 152/93 Pulse Ox 99 O2 Flow Rate 0 Medical Decision Making Additional information obtaine: other Findings Chief Complaint: Right flank pain for three weeks History of Present Illness: 45-year-old female presenting to the emergency department with a three-week history of right flank pain. Patient reports one episode of vomiting two days prior to presentation. Denies fever, chills, additional vomiting, nausea, diarrhea, dysuria, or foul-smelling urine. Diagnostic Workup: Laboratory studies reviewed and without concerning findings Urinalysis demonstrates significant urinary tract infection with findings consistent with probable pyelonephritis Assessment and Clinical Reasoning: The patient presents with probable acute pyelonephritis based on the constellation of right flank pain and urinalysis findings consistent with urinary tract infection. The patient is appropriate for outpatient management given mild illness severity, absence of vomiting at presentation, hemodynamic stability, and ability to tolerate oral therapy. Treatment Provided in Emergency Department: Ceftriaxone 1 gram intravenous - administered as initial parenteral therapy per IDSA guidelines for patients being discharged on oral antibiotics Ketorolac 30 mg intravenous - for pain management Acetaminophen 1 gram oral - for pain and symptomatic relief Medical Decision-Making: The decision was made to discharge the patient home with oral antibiotic therapy. Outpatient management is appropriate for this patient who has uncomplicated disease, can tolerate oral intake, and has no high-risk features requiring hospitalization. The administration of ceftriaxone 1 gram intravenous prior to discharge follows IDSA recommendations when initiating oral antibiotic therapy for pyelonephritis, particularly when local resistance patterns may be a concern. Discharge Plan: Oral antibiotic prescription provided for completion of pyelonephritis treatment course Patient counseled on expected clinical improvement within 48-72 hours Instructed to return if symptoms worsen or fail to improve within 1-2 days Follow-up arranged with primary care provider for reassessment and review of urine culture results Patient advised to ensure antibiotic selection is appropriate once culture and susceptibility results are available Disposition: Discharged home in stable condition with close outpatient follow-up Differential Dx:Considerations: Urinary obstruction, Urinary tract infection, Other, N/A Departure Disposition: HOME / SELF CARE / HOMELESS Impression: Primary Impression: Acute urinary tract infection Additional Impression: Acute pyelonephritis Condition: Stable Discharge Instructions: Pyelonephritis, Adult, Urinary Tract Infection, Adult, [id number] Additional Instructions: Your Diagnosis You were treated in the emergency department for a kidney infection (pyelonephritis). This is a bacterial infection that requires antibiotic treatment. Your Medications You have been prescribed cefpodoxime 200 mg tablets. This is an antibiotic that will help clear the infection in your kidneys. How to Take Your Medication: Take one 200 mg tablet by mouth twice daily (every 12 hours) Continue for 10 days total Take with food to help your body absorb the medication better Complete the entire course even if you feel better before finishing all the pills Important: Skipping doses or not finishing the full course may make the i nfection harder to treat and can lead to antibiotic resistance. What to Expect You should start feeling better within 1-2 days of starting the antibiotic Flank pain and other symptoms should gradually improve If you do not feel better within 48-72 hours, contact your doctor Possible Side Effects The most common side effect of cefpodoxime is diarrhea. Contact your doctor sabas t gagan if you develop: Severe diarrhea or watery/bloody stools (even up to 2 months after finishing the antibiotic) Fever that develops or worsens Severe abdominal pain or cramping Signs of allergic reaction (rash, hives, difficulty breathing, swelling) When to Return to the Emergency Department Seek immediate medical attention if you experience: Worsening flank or back pain High fever (temperature over 101F) Persistent vomiting that prevents you from taking your medication Inability to urinate Confusion or severe weakness Any other concerning symptoms Follow-Up Care Schedule an appointment with your primary care provider within 3-5 days Your doctor may want to recheck your urine to make sure the infection is clearing Bring your urine culture results to your follow-up appointment General Care Instructions Drink plenty of water to help flush bacteria from your urinary system Urinate when you feel the urge; don't hold it Finish all your antibiotics as prescribed Special Instructions for Patients with Kidney Problems If you have kidney disease or are on dialysis, make sure your primary care provider knows you were prescribed this medication, as the dose may need adjustment. Referrals: NO PRIMARY CARE PROVIDER (PCP) Prescriptions Cefpodoxime Proxetil (Cefpodoxime Proxetil) 100 Mg/5 Ml Susp.recon 2 TAB PO Q12H for 10 Days, #40 TAB 0 Refills Prov: NEDA LARES 09/06/25 Education Educated: Patient Educated regarding: diagnosis, treatment, need for follow up Signature Scribe Signature: A Attestation: Scribed for Neda Lares by CHEO Blood . 09/06/25 12:29 NEDA LARES Sep 06, 2025 10:11
[2025-09-06 10:31] LABS: URINE HCG NEGATIVE (NEG)
[2025-09-06 10:32] LABS: LEUKOCYTE ESTERASE ,URINE TRACE (Neg); NITRITES, URINE POSITIVE (Neg); OCCULT BLOOD,URINE NEGATIVE (Neg)
[2025-09-06 10:36] LABS: UA COLLECTION TYPE CLN CATCH MIDSTREAM
[2025-09-06 10:38] LABS: MUCUS STRANDS MODERATE /LPF (Neg); SQUAMOUS EPITHELIAL CELL,UR MANY /LPF (FEW)
[2025-09-06 11:16] LABS: MEAN PLATELET VOLUME 9.0 FL (7.4-10.4); RED CELL DISTRIBUTION WIDTH 14.2 % (11.5-14.5)
[2025-09-06 11:35] LABS: CREATININE 0.42 MG/DL (0.40-0.90); TOTAL CARBON DIOXIDE 29.8 MMOL/L (24-32); eCRCL 149 ML/MIN; eGFR > 90 ML/MIN
[2025-09-06] MEDS ORDERED: CefTRIAXone 1000mg IM Kit (w/lidocaine diluent) IM ONE (11:50)
[2025-09-06] MEDS ORDERED: CEFP100S9 PO (12:28)
[2025-09-06] MEDS: CefTRIAXone/D5W-Rocephin 1gm 50 ML IV ONE (12:32)
[2025-09-06] MEDS: ketorolac trometh 15mg/ml vial 15 MG/ML ML IV ONE (12:33)
[2025-09-06 12:59] VITALS: BP 145/95; PULSE 84; RESP 18; O2SAT 100
== END 2025-09-06 13:08 | disposition home or self-care (01) ==
LOC: ER 09:40
DX: N10 Acute pyelonephritis (principal); N39.0 Urinary tract infection, site not specified; F12.90 Cannabis use, unspecified, uncomplicated; F10.10 Alcohol abuse, uncomplicated; Y90.9 Presence of alcohol in blood, level not specified
CPT/HCPCS: 36415; 80053; 81001; 81025; 85025; 96365; 96375; 99284; J0696; J1885